=== PATIENT | male | born 1950 | race Caucasian/White ===

== ENCOUNTER → 2016-08-01 | Outpatient (CLI) | payer MEDICARE, OTHER ==
[~2016-08-01] MED LIST: ASCO500T2 PO; CALC-98 PO; CHOL10007 PO; ESOM40CA47 PO; GARL1000 PO; GLUC1CAP48 PO; LACT1CAP6 PO; MILK500C PO; OMEG1CAP6 PO; UBID50TA PO; VITA150T PO; VITA400C6 PO; [UNRECOGNIZED DRUG - CODE] IM/IV/SC
[2016-08-01 15:05] LABS: BASO # 0.1 x10^3/uL (0.0-0.2); BASO % 1 % (0-3); EOS % 2 % (0-3); HEMATOCRIT 53.2 % (39.0-53.0); HEMOGLOBIN 17.9 g/dL (13.0-17.5); LYMPH # 2.8 x10^3/uL (1.0-4.8); LYMPH % 33 % (24-48); MEAN CORPUSCULAR HEMOGLOBIN 32 pg (25-35); MEAN CORPUSCULAR HGB CONC 34 g/dL (31-37); MEAN CORPUSCULAR VOLUME 96 fL (79-100); MONO % 10 % (0-9); NEUT % 54 % (31-73); PLATELET COUNT 206 x10^3/uL (140-400); RED BLOOD COUNT 5.52 x10^6/uL (4.30-5.70); RED CELL DISTRIBUTION WIDTH 12.8 % (11.5-14.5); WHITE BLOOD COUNT 8.8 x10^3/uL (4.0-11.0)
--- NOTE | 2016-08-01 15:10 | EKG ---
[facility] [address] [place] [address] Test Date: 2016-08-01 Test Time: 15:07:20 Pat Name: DC DURANT Department: Room: Gender: M Consumer Educator: ALLA : 1950 Requested By: LISBET OCONNOR Order Number: [id number] Reading MD: Isael Kasper Measurements Intervals [place] Rate: 61 P: 41 NV: 136 QRS: -11 QRSD: 106 T: 47 QT: 362 QTc: 369 Interpretive Statements SINUS RHYTHM CANNOT RULE OUT INFERIOR INFARCT NON-SPECIFIC ST/T CHANGES Electronically Signed On 08-04-2016 14:33:37 RUBBER STAMP DIES INSPECTOR by Isael Kasper
[2016-08-01 22:53] LABS: ALBUMIN 4.3 g/dL (3.4-5.0); ALBUMIN/GLOBULIN RATIO 1.4 (1.0-1.7); CALCIUM 9.3 mg/dL (8.5-10.1); CREATININE 1.3 mg/dL (0.7-1.3); GFR 55.2; POTASSIUM 4.2 mmol/L (3.5-5.1); TOTAL BILIRUBIN 0.4 mg/dL (0.2-1.0); TOTAL PROTEIN 7.4 g/dL (6.4-8.2)
== END | disposition home or self-care (01) ==
LOC: SURGPAT 13:10
PROVIDERS: ATTEND Neurological Surgery
DX: Z01.818 Encounter for other preprocedural examination (principal); M51.26 Other intervertebral disc displacement, lumbar region; I10 Essential (primary) hypertension
CPT/HCPCS: 36415; 80053; 85027; 87641; 93005

== ENCOUNTER 2016-08-11 07:38 | Observation (INO) | payer MEDICARE, OTHER ==
[2016-08-11] VITALS (10 sets, daily range): BP systolic 108–146; BP diastolic 62–87
[~2016-08-11] VITALS: Ht 172.7 cm; Wt 91.2 kg
--- NOTE | 2016-08-11 07:00 | HP ---
ADMIT DATE: 08/11/2016 Orlin Bonner dictating for Dr. Manuel Oconnor. Date of operation: 08/11/2016. HISTORY OF PRESENT ILLNESS: The patient is a pleasant 66-year-old man who is having difficulty with left posterior thigh and leg pain. He notes tightness in his ankle. He says the problem started on 03/18/2016. It began after a long distance drive. He notes 0/10 pain with sitting, but 10/10 pain with standing for any length of time. Walking seems to help as does sitting in a recliner. He exercises every day, but relates that he is unable to exercise nearly as much as he normally does because of this pain. He has had chiropractic treatment, which is of no help. Steroid injections were done, which were also of no significant help. PAST MEDICAL HISTORY: Arthritis, headaches/migraines, scarlet fever, stomach/intestinal disease, tonsillitis. PAST SURGICAL HISTORY: Septal rhinoplasty in 1987, Peyronie's disease in 1994, left rotator cuff in 2001, right rotator cuff in 2002, T and A in 1956, vasectomy in 1979. FAMILY HISTORY: Aneurysm, cancer. SOCIAL HISTORY: Retired. . Exercises daily. Denies substance abuse. Smokes an occasional cigar. Drinks alcohol one to two times per week. Drinks coffee, tea and soda. ALLERGIES: CELEBREX. CURRENT MEDICATIONS: Esomeprazole, magnesium, testosterone, vitamin C and D3/Nicole Hips, Super B complex, fish oil, calcium/magnesium, zinc, CoQ10, milk thistle, garlic oil, probiotic, glucosamine. REVIEW OF SYSTEMS: A 12-point review of systems was obtained and is noncontributory except for that mentioned above. PHYSICAL EXAMINATION: NEUROSURGERY EXAMINATION: GENERAL APPEARANCE: Alert, pleasant, in no acute distress. HEAD: Normocephalic and atraumatic. SKIN: Warm and dry. MUSCULOSKELETAL: Lumbar paraspinal muscle bulk is normal, restricted range of motion of lumbar spine, [id number] tenderness of lower lumbar spine with palpation, normal range of motion of the lower extremities bilaterally. EXTREMITIES: No clubbing, cyanosis or edema. NEUROLOGIC: Alert and oriented x 3, normal recent and remote memory, strength 5/5 in bilateral lower extremities, sensory was intact to light touch in bilateral lower extremities, reflexes were present and symmetric in the lower extremities bilaterally, positive straight leg raising on the left, normal gait. IMAGING: Reviewed. I reviewed a lumbar MRI scan. On that study, there is straightening of the normal lumbar lordosis. There is severe left foraminal narrowing at L5-S1 due to disk bulging and disk osteophyte complex in the left foramen. Additionally, there is lateral recess stenosis on the left, which is severe at this level. ASSESSMENT: 1. Intervertebral disk disorders with radiculopathy, lumbosacral region. 2. Spinal stenosis, lumbosacral region. PLAN: His problems are primarily at L5-S1 on the left. My recommendation is that he undergo lumbar microsurgery at this level. I did discuss this with him in detail. I explained that a transforaminal exposure could weaken the back predisposing him to needing an instrumented fusion in the future. I discussed the risks and technique of the operation. He understands. He would like to go ahead. We will make the arrangements. MANUEL OCONNOR MD DR: KURT/paul JOB#: [id number] / [id number]
[~2016-08-11 07:38] MED LIST changes: +BACITRACIN 50,000 UNIT in IV NORMAL SALINE 1000ML BAG 1,000 ML IRR ONE; +BUPIVAC MPF-EPI 0.5%-1:200000 30 ML VIAL. ONE; +CEFAZOLIN 2GM PREMIX 50 ML IV PRN; +FENTANYL PF 100 MCG/2 ML VIAL. IV PRN; +GELATIN SPONGE SIZE 100. ONE; +HYDROMORPHONE 2 MG/ML VIAL. IV PRN; +IV RINGERS,LACTATED 1000ML 1,000 ML IV SCH; +KETOROLAC 60 MG/2 ML SYRINGE FOR OR. ONE; +LIDOCAINE 1% 1 ML SYRINGE. ID PRN; +MORPHINE SULFATE 2 MG/ML DISP.SYRIN. IV PRN; +ONDANSETRON PF 4 MG/2 ML VIAL. IV PRN; +PROCHLORPERAZINE 10 MG/2 ML VIAL. IV PRN; +THROMBIN 20,000 UNIT SPRAY.SYRN KIT TP ONE
[2016-08-11] MEDS ORDERED: MEPERIDINE PF 25 MG/ML VIAL. IV PRN (08:00)
[2016-08-11] MEDS ORDERED: FENTANYL PF 100 MCG/2 ML VIAL. IV PRN ×3 (08:00→16:15)
[2016-08-11] MEDS ORDERED: MORPHINE SULFATE 4 MG/ML DISP.SYRIN. IV PRN (08:00)
[2016-08-11] MEDS ORDERED: HYDROMORPHONE 2 MG/ML VIAL. IV PRN (08:00)
[2016-08-11] MEDS ORDERED: PROCHLORPERAZINE 10 MG/2 ML VIAL. IV PRN (08:00)
[2016-08-11] MEDS ORDERED: DIPHENHYDRAMINE 50 MG/ML VIAL IV PRN (08:00)
[2016-08-11] MEDS ORDERED: DESFLURANE > 120 MINUTES IH ONE (10:16)
[2016-08-11] MEDS ORDERED: ONDANSETRON PF 4 MG/2 ML VIAL. ONE (10:17)
[2016-08-11] MEDS ORDERED: ROCURONIUM 50 MG/5 ML VIAL. ONE (10:17)
[2016-08-11] MEDS ORDERED: MIDAZOLAM HCL 2 MG/2 ML VIAL. ONE (10:17)
[2016-08-11] MEDS ORDERED: PROPOFOL 20 ML IV ONE (10:17)
[2016-08-11] MEDS ORDERED: 0.9 % SODIUM CHLORIDE 50 ML VIAL. IJ ONE (10:17)
[2016-08-11] MEDS ORDERED: REMIFENTANIL 2 MG VIAL. IV ONE (10:17)
[2016-08-11] MEDS ORDERED: LIDOCAINE 2% 100 MG/5 ML DISP.SYRIN. ONE (10:17)
[2016-08-11] MEDS ORDERED: DEXAMETHASONE SOD PHOS 20 MG/5 ML VIAL. ONE (10:17)
[2016-08-11] MEDS ORDERED: FENTANYL PF 100 MCG/2 ML VIAL. ONE (10:17)
[2016-08-11] MEDS ORDERED: PHENYLEPHRINE 10 MG/ML VIAL. ONE (12:42)
[2016-08-11] MEDS ORDERED: GLYCOPYRROLATE 1 MG/5 ML VIAL. ONE (13:36)
--- NOTE | 2016-08-11 14:28 | DISCH ---
DISCHARGE INSTRUCTIONS Condition on Discharge Condition on Discharge: Stable Activity After Discharge Activity Instructions for Disc: No restrictions Other activity instructions: May remove dressing in 48 hours. May leave open to air if no drainage. Bathing Instructions: Shower-keep dressing dry (no soaking, no direct water pressure. ) Lifting Instructions after Dis: No heavy lifting, No pulling or pushing, Do not lift >10 pounds Driving Instructions after Dis: Do not drive (for 1 week) Weight Bearing Status after Di: No restrictions Diet after Discharge Additional Diet Restrictions: resume home diet Wound Incision Care Wound/Incision Care: Ice to area for comfort Other wound/incision instructi: change dressing if saturated Wound Care Equipment: Dressings Contacting the [facility] after DC Call your doctor for: Concerns you may have (Call the office with any questions or concerns [phone].) Follow-Up Follow up with: Nurse @ 's office in 2 weeks. Call for appt. [phone] HUNTER STARKS RN Aug 11, 2016 14:28
[2016-08-11] MEDS ORDERED: HYDR-2762 PO (14:31)
[2016-08-11] MEDS ORDERED: CYCL10TA2 PO (14:32)
[2016-08-11] MEDS ORDERED: HYDROCODONE/APAP 7.5/325MG TABLET. PO PRN ×3 (14:45→16:00)
[2016-08-11] MEDS ORDERED: CYCLOBENZAPRINE 10 MG TABLET. PO PRN ×2 (14:45→16:00)
[2016-08-11] MEDS ORDERED: PROCHLORPERAZINE 5 MG TABLET. PO PRN (16:00)
[2016-08-11] MEDS ORDERED: MORPHINE SULFATE 2 MG/ML DISP.SYRIN. IV PRN (16:00)
[2016-08-11] MEDS: HYDROCODONE/APAP 7.5/325MG TABLET. PO PRN ×2 (21:02→22:52)
[2016-08-12 02:06] VITALS: BP 99/55
[2016-08-12 06:14] VITALS: BP 103/60
[2016-08-12] MEDS ORDERED: PANTOPRAZOLE 40 MG TABLET. PO SCH (07:30)
[2016-08-12] MEDS: HYDROCODONE/APAP 7.5/325MG TABLET. PO PRN ×2 (08:40→12:51)
[2016-08-12 13:19] VITALS: BP 110/70
--- NOTE | 2016-08-12 23:10 | OP ---
DATE OF SURGERY: 08/11/2016 PREOPERATIVE DIAGNOSES: 1. Lateral recess narrowing at L5-S1 on the left. 2. Severe left foraminal narrowing at L5-S1 on the left from disc bulging. POSTOPERATIVE DIAGNOSIS: 1. Lateral recess narrowing at L5-S1, left. 2. Severe left foraminal narrowing at L5-S1, left from disc bulging. OPERATION PERFORMED: Hemilaminotomy at L5-S1 on the left with microdiscectomy at L5-S1 on the left, transfacet exposure at L5-S1 on the left with decompression of the left L5 nerve root and lateral discectomy at this level. The operation was done with EMG monitoring, fluoroscopy and microscopic dissection. WESTERN TACK ASSEMBLY LINE WORKER: XIMENA Campos assisted with the surgery. She assisted with the microdecompression as well as the closure. OPERATIVE INDICATIONS: The patient is a very pleasant 66-year-old man who developed intractable back and left leg pain and had the above-mentioned findings on imaging studies. He underwent epidural steroid injections with no significant help as well. He underwent chiropractic treatment. I recommended lumbar microsurgery to see if this would not give him some relief. I spoke with him about the surgery and the risks involved. I also explained that in the future he may require instrumented lumbar fusion, if this did not adequately deal with his problem. He understood and he wished to go ahead. DESCRIPTION OF PROCEDURE: Following general endotracheal anesthesia, the patient was positioned prone on the Kem table. His lumbar region was prepped and draped in the standard fashion. DURAN hose and AV impulse boots were applied for DVT prophylaxis. A microscope was draped, fluoroscopy was draped and brought into field, monitoring was established. Ancef 2 grams was given less than 1 hour prior to initiation of the surgery. I made an incision over the L5-S1 interspace. I dissected down through the skin and subcutaneous tissue and placed a [place] micro disc retractor. I confirmed my position fluoroscopically. I brought in the microscope and the remainder of the surgery done with the microscope using microscopic technique. Using the high-speed air drill, I burred down a generous hemilaminotomy and trimmed away the ligamentum flavum and I performed a partial foraminotomy. There was significant disc bulging compressing the lateral recess and then I began to drill bone over the facet and worked laterally and superiorly. I visualized the L5 root and I followed this out to its contact with the disc. I then incised the disc lateral to the dura, medial to the L5 root, and I performed a generous discectomy and removed lateral disc material. I decompressed laterally underneath the root and pulled back soft disc, and as I worked, the root became very well decompressed. There was some bone spurring from the osteophytic disc and I used a tamp and tamped this bone laterally down and fully decompressed the L5 root. More medially, then, I incised the annulus and ligament and gently retracted the dura medially and there were subligamentous disc fragments, which were compressing the root in this location and I removed this material and I completed the more medial discectomy. As I worked, the S1 root became very well decompressed as well. Following this, I explored carefully. There were no other retained subligamentous herniated disc fragments. The region was very well decompressed. I irrigated copiously. Hemostasis was obtained during the operation with bipolar cautery as well as bone wax. I removed the retractor. I obtained hemostasis in the muscle and I closed the wound in layers with absorbable suture. Skin was closed with 4-0 subcuticular stitch. The operation went very well, and the patient was taken uneventfully to recovery room in excellent condition. I was quite pleased with the surgery. LISBET OCONNOR MD DR: KURT/paul JOB#: [id number] / [id number]
--- NOTE | 2016-08-15 14:38 | PATHOLOGY ---
PATHOLOGY REPORT * * * * * * * * FINAL DIAGNOSIS: Segments of fibrocartilaginous, adipose, and skeletal muscle tissue and bone, lumbar disc and decompression: - Degenerative changes of fibrocartilaginous tissue. COMMENT: There is no evidence of an acute inflammatory process or malignancy. (JPM:; d/t: 08/15/16) REPORT ELECTRONICALLY SIGNED BY: Goran Matson M.D. DATE/TIME: 08/15/2016 14:38 * * * * * * * * GROSS PATHOLOGY: Received in formalin labeled "Allan Durant, lumbar disc and decompression" are multiple segments of mera, rubbery, and gritty tissue admixed with bone. The specimen measures 4.8 x 3.0 x 0.4 cm in aggregate dimensions. The tissue is submitted representatively in cassette A1, following decalcification. (CAA; 08/12/2016) INITIAL CPT CODE(S): A; 10668, 07589 Professional services performed [place] [place] [address] Technical services performed by [facility] at [address] [place] [address]. SPECIMEN(S) RECEIVED: A.Lumbar disc and decompression CLINICAL HISTORY: Lumbar herniated disc PATIENT: ALLAN DURANT /AGE: 10 1950 (Age: 66) PATIENT #: [id number] ALT CASE #: SPECIMEN COLLECTION DATE: 08/11/2016 SPECIMEN RECEIVED DATE: 08/12/2016 [facility] - [address] [place] [address] - PHONE: [phone] * * * END OF REPORT * * *
== END 2016-08-12 13:15 | disposition home or self-care (01) ==
LOC: SURG 07:38 → EDUNIT# 11:30 → 4 SOUTHEST 16:05
PROVIDERS: ADMIT Neurological Surgery; ATTEND Neurological Surgery
DX: M54.10 Radiculopathy, site unspecified (principal); M48.07 Spinal stenosis, lumbosacral region; G43.909 Migraine, unspecified, not intractable, without status migrainosus; F17.290 Nicotine dependence, other tobacco product, uncomplicated; M25.70 Osteophyte, unspecified joint
CPT/HCPCS: 63030; 76001; 97161; 97530; C1713; G0378; G0379; G8978; G8979; G8980; J0690; J1100; J1885; J2250; J2405; J2704; J3010; J3490; J7030; J7120